=== PATIENT | male | born 1975 | race Caucasian/White ===

== ENCOUNTER 2024-11-23 20:12 | Emergency (ER) | payer BC, OTHER ==
[2024-11-23] MEDS ORDERED: Bacitracin 1 PK ONE (20:58)
[2024-11-23] MEDS ORDERED: Boostrix 0.5 ML (Tdap) VIAL (>/=7 yrs of age) ONE (20:59)
== END 2024-11-23 21:15 | disposition home or self-care (01) ==
LOC: BURERS 20:12
DX: S01.01XA Laceration without foreign body of scalp, initial encounter (principal); W01.198A Fall on same level from slipping, tripping and stumbling with subsequent striking against other object, initial encounter; Z23 Encounter for immunization
CPT/HCPCS: 12001; 90471; 90715